=== PATIENT | female | born 1995 | race Hispanic/Latino ===

== ENCOUNTER 2025-07-20 04:10 | Inpatient (IN) | payer MEDICAID, OTHER ==
[2025-07-20 04:25] VITALS: BMI 32.2
[2025-07-20] MEDS ORDERED: Acetaminophen 500 MG TAB PO PRN (04:59)
[2025-07-20] MEDS ORDERED: hydrALAZINE 20 MG/ML VIAL SLOW IVP PRN ×2 (04:59→07:50)
[2025-07-20] MEDS ORDERED: Ibuprofen 800 MG TAB PO PRN (05:42)
[2025-07-20] MEDS ORDERED: Diphenoxylate HCl/Atropine Tablet PO PRN ×2 (05:42)
[2025-07-20] MEDS ORDERED: Ondansetron PF 4 MG/2 ML Vial IVP PRN ×5 (05:42→08:07)
[2025-07-20] MEDS ORDERED: Lidocaine 1% (PF) 30 ML VIAL SC PRN (05:42)
[2025-07-20] MEDS ORDERED: Tranexamic Acid 1,000 MG/10 ML VIAL IVP PRN (05:42)
[2025-07-20] MEDS ORDERED: Methylergonovine 0.2 MG/ML VIAL IM PRN ×2 (05:42→07:50)
[2025-07-20] MEDS ORDERED: Carboprost 250 MCG/ML AMP IM PRN (05:42)
[2025-07-20] MEDS ORDERED: Oxytocin 30 units/NS 500 ML 500 ML IV SCH ×3 (05:45→08:00)
[2025-07-20] MEDS ORDERED: Penicillin G Potassium 5 MILL.UNITS in Sodium Chloride 0.9% 100 ML IVPB SCH (05:45)
[2025-07-20 06:04] LABS: Hematocrit 30.7 % (34.9-44.5); Hemoglobin 9.9 g/dL (12.0-15.5); Mean Corpuscular Hemoglobin 27.7 pg (27.0-33.0); Mean Corpuscular Volume 85.8 fL (81.6-98.3); Platelet Count 125 10x3/uL (150-450); Red Blood Cell (RBC) Count 3.58 10x6/uL (3.90-5.03); White Blood Cell (WBC) Count 12.51 10x3/uL (3.5-10.5)
[2025-07-20 06:29] LABS: Syphilis Antibody Index 0.05 S/CO (<1.00 Non-Reactive)
[2025-07-20 06:31] LABS: HIV (1/2) Antibody/Antigen Non-Reactive (NonReactive); HIV 1/2 INDEX 0.07 S/CO (<1.00); Hep B Surf Ag - L&D Non-Reactive S/CO (NonReactive)
[2025-07-20] MEDS ORDERED: Bicitra 30 ML UDCUP PO PRN (06:32)
[2025-07-20] MEDS ORDERED: Famotidine/PF 20 mg/2ml Vial SLOW IVP PRN (06:32)
[2025-07-20] MEDS ORDERED: Simethicone Chewable 80 MG TAB PO PRN (07:50)
[2025-07-20 08:00] LABS: Analyzer IN Cardio CS NICU; RapidComm Collect By RN
[2025-07-20 08:01] LABS: Analyzer IN Cardio CS NICU; Critical Notified By: S. Buerger, RRT; RapidComm Collect By RN; pH (Cord, venous) 7.306 (7.250-7.350)
[2025-07-20] MEDS ORDERED: Meperidine HCl/PF 25 MG (1 mL) VIAL SLOW IVP PRN (08:07)
[2025-07-20] MEDS ORDERED: HYDROmorphone 0.5 MG/0.5 ML SYRINGE SLOW IVP PRN (08:07)
[2025-07-20] MEDS ORDERED: diphenhydrAMINE 25 MG CAP PO PRN (08:07)
[2025-07-20] MEDS ORDERED: diphenhydrAMINE 50 MG/ML VIAL IM PRN (08:07)
[2025-07-20] MEDS ORDERED: diphenhydrAMINE 50 MG/ML VIAL IVP PRN ×2 (08:07)
[2025-07-20] MEDS ORDERED: Ketorolac Tromethamine 30 MG (1 mL) VIAL IVP SCH (08:15)
[2025-07-20] MEDS ORDERED: Communication Order-Pharmacy FS SCH ×2 (08:15)
[2025-07-20 08:33] LABS: Hematocrit 29.4 % (34.9-44.5); Hemoglobin 9.6 g/dL (12.0-15.5)
[2025-07-20 08:39] LABS: Platelet Count 129.0 10x3/uL (150-450)
[2025-07-20 08:48] LABS: D-Dimer Test 3.23 mcg/mL (0.19-0.50); Fibrinogen 530.0 mg/dL (220-504); INR-International Normal Ratio 0.9; PTT 27.2 sec (22.0-33.0); Prothrombin Time 9.8 sec (9.5-12.1)
[2025-07-20] MEDS: fentaNYL Citrate/PF 55 ML IV SCH (08:52)
[2025-07-20] MEDS ORDERED: Penicillin G 2.5 MILL.units 2.5 MILL.UNITS in Premix 1 BAG IVPB SCH (09:45)
[2025-07-20] MEDS: Oxytocin 10 UNITS/ML VIAL ONE (11:28)
[2025-07-20] MEDS: CEFAZOLIN 2 GM VIAL ONE (11:28)
[2025-07-20] MEDS: Dexamethasone 10 MG/ML VIAL ONE (11:28)
[2025-07-20] MEDS: PHENYLEPHRINE-NS 100 MCG/ML 10 ML SYRINGE ONE (11:28)
[2025-07-20] MEDS: Penicillin G Potassium 5 MILL.UNITS VIAL ONE (11:28)
[2025-07-20] MEDS: Azithromycin 500 MG VIAL ONE (11:28)
[2025-07-20] MEDS: Rocuronium Bromide 10 MG/ML (10ML VIAL) ONE (11:29)
[2025-07-20] MEDS: SUGAMMADEX SODIUM 200 MG/2 ML VIAL ONE (11:29)
[2025-07-20] MEDS: Ferrous Sulfate 325 MG TAB PO SCH (11:36)
[2025-07-20 18:54] LABS: Hematocrit 28.5 % (34.9-44.5); Hemoglobin 9.7 g/dL (12.0-15.5)
[2025-07-21 05:42] LABS: Hematocrit 29.8 % (34.9-44.5); Hemoglobin 9.8 g/dL (12.0-15.5); Mean Corpuscular Hemoglobin 28.8 pg (27.0-33.0); Mean Corpuscular Volume 87.6 fL (81.6-98.3); Platelet Count 129 10x3/uL (150-450); Red Blood Cell (RBC) Count 3.40 10x6/uL (3.90-5.03); White Blood Cell (WBC) Count 14.79 10x3/uL (3.5-10.5)
[2025-07-21] MEDS: Ketorolac Tromethamine 30 MG (1 mL) VIAL IVP PRN (08:35)
[2025-07-21] MEDS: Acetaminophen 325 MG TAB PO PRN (14:58)
[2025-07-22] MEDS: Ibuprofen 800 MG TAB PO SCH (13:09)
[2025-07-24 08:05] VITALS: BP 122/77; TEMP 98.3
== END 2025-07-24 17:50 | disposition home or self-care (01) | DRG 786 ==
LOC: CSHLD/OP 04:10 → CSHLD 05:47 → CSHPED 10:45
PROVIDERS: ADMIT Family Medicine; ATTEND Family Medicine
PROC: 10D00Z1 Extraction of Products of Conception, Low, Open Approach (ICD-10-PCS; principal; 2025-07-20)
PROC: 4A1HXCZ Monitoring of Products of Conception, Cardiac Rate, External Approach (ICD-10-PCS; 2025-07-20)
PROC: 30233N1 Transfusion of Nonautologous Red Blood Cells into Peripheral Vein, Percutaneous Approach (ICD-10-PCS; 2025-07-20)
PROC: 3E03329 Introduction of Other Anti-infective into Peripheral Vein, Percutaneous Approach (ICD-10-PCS; 2025-07-20)
PROC: 3E03329 Introduction of Other Anti-infective into Peripheral Vein, Percutaneous Approach (ICD-10-PCS; 2025-07-20)
DX: O99.02 Anemia complicating childbirth (principal); O45.93 Premature separation of placenta, unspecified, third trimester; O72.1 Other immediate postpartum hemorrhage; O99.824 Streptococcus B carrier state complicating childbirth; O76 Abnormality in fetal heart rate and rhythm complicating labor and delivery; O99.214 Obesity complicating childbirth; Z3A.39 39 weeks gestation of pregnancy; Z37.0 Single live birth; Z79.82 Long term (current) use of aspirin; Z79.899 Other long term (current) drug therapy; Z98.890 Other specified postprocedural states; Z90.49 Acquired absence of other specified parts of digestive tract; Z23 Encounter for immunization
CPT/HCPCS: 36415; 36430; 51702; 82805; 85027; 85049; 85300; 85362; 85384; 85610; 85730; 86780; 86850; 86900; 86901; 87340; 87389; 88307; 88341; 88342; 99285; J0169; J1100; J1885; J2250; J2274; J2590; J3010; P9016